=== PATIENT | male | born 1970 | race Two or more races ===

== ENCOUNTER 2018-07-22 09:34 | Emergency (ER) | payer SELFPAY ==
[~2018-07-22] VITALS: Ht 172.7 cm; Wt 95.3 kg
[2018-07-22 09:53] VITALS: BP 133/85
--- NOTE | 2018-07-22 10:59 | RAD ---
Chest, PA and Lateral: Technique: PA and lateral views of the chest were obtained. History: Chest pain. Comparison: None. Findings: The heart size grossly appears unremarkable. Patchy bibasilar lung airspace opacities likely atelectasis or infiltrates. Mild degenerative changes thoracic spine. IMPRESSION: Mild patchy bibasilar airspace opacities likely atelectasis or infiltrates. Electronically signed by: Austin Ashraf MD (07/22/2018 10:56 AM) [id number]
[2018-07-22] MEDS ORDERED: DOXY100C2 PO (11:04)
[2018-07-22] MEDS ORDERED: CYCL5TAB PO (11:04)
--- NOTE | 2018-07-22 11:15 | PHYS DOC ---
Past Medical History Past Medical History: Hypertension Past Surgical History: Other Additional Past Surgical Histo: hernia repair Alcohol Use: None Drug Use: None Adult General Chief Complaint Chief Complaint: BACK PAIN OR INJURY HPI HPI Patient is a 47 year old male who presents with right-sided mid back pain for the last 2 weeks he said it started after he lifted something heavy at work. It is worse with lifting or twisting in addition he has a cough dry cough mostly no fever he says also it hurts to take a deep breath. It is not coughing up any blood no prior history of blood clot really no shortness of breath. No medical history none Medications he has been using [id number] agents for minimal relief Review of Systems Review of Systems Constitutional: Denies fever or chills [] Eyes: Denies change in visual acuity, redness, or eye pain [] HENT: Denies nasal congestion or sore throat [] Respiratory Cardiovascular: No additional information not addressed in HPI [] GI: Denies abdominal pain, nausea, vomiting, bloody stools or diarrhea [] : Denies dysuria or hematuria [] Musculoskeletal: All other systems were reviewed and found to be within normal limits, except as documented in this note. Allergies Allergies Allergies Coded Allergies Type Severity Reaction Last Updated Verified No Known Drug Allergies 07/22/18 No Physical Exam Physical Exam Constitutional: Well developed, well nourished, no acute distress, non-toxic appearance. [] HENT: Normocephalic, atraumatic, bilateral external ears normal, oropharynx moist, no oral exudates, nose normal. [] Eyes: PERRLA, EOMI, conjunctiva normal, no discharge. [] Neck: Normal range of motion, no tenderness, supple, no stridor. [] Lungs & Thorax: Bilateral breath sounds clear to auscultation [] Abdomen: Bowel sounds normal, soft, no tenderness, no masses, no pulsatile masses. [] Skin: Warm, dry, no erythema, no rash. [] Back: There is reproducible chest wall tenderness posterior right upper back at the T6 area laterally no midline tenderness] Extremities: No tenderness, no cyanosis, no clubbing, ROM intact, no edema. [] Neurologic: Alert and oriented X 3, normal motor function, normal sensory function, no focal deficits noted. [] Psychologic: Affect normal, judgement normal, mood normal. [] Current Patient Data Vital Signs Vital Signs Date Time Temp Pulse Resp B/P (MAP) Pulse Ox O2 Delivery O2 Flow Rate FiO2 07/22/18 09:53 98.2 59 18 133/85 (101) 97 Room Air 98.2 EKG EKG [] Radiology/Procedures Radiology/Procedures [] Impressions: IMPRESSION: Mild patchy bibasilar airspace opacities likely atelectasis or infiltrates. Electronically signed by: Austin Ashraf MD (07/22/2018 10:56 AM) [id number] DICTATED and SIGNED BY: AUSTIN ASHRAF MD DATE: 07/22/18 1054 Course & Med Decision Making Course & Med Decision Making Pertinent Labs and Imaging studies reviewed. (See chart for details) []47-year-old male no past medical history presenting with upper back pain initially did some musculoskeletal but he endorsed a pleuritic component as well as having a cough so we did a chest x-ray which showed bibasilar possibly rolled subtle infiltrate. Patient is satting well not tachycardic nor hypoxic normal blood pressure he is definitely appropriate for outpatient management prescription for doxycycline was provided as well as a muscle relaxant for his neck pain. 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 Dragon Disclaimer Dragon Disclaimer This electronic medical record was generated, in whole or in part, using a voice recognition dictation system. Departure Departure Impression: Primary Impression: Pneumonia Disposition: 01 HOME, SELF-CARE Condition: STABLE Patient Instructions: Pneumonia, Adult, [id number] Scripts Cyclobenzaprine Hcl (CYCLOBENZAPRINE HCL) 5 Mg Tablet 5 MG PO PRN TID PRN for MUSCLE SPASMS, #15 TAB Prov: MARIJA BUSTILLOS MD 07/22/18 Doxycycline Hyclate (DOXYCYCLINE HYCLATE) 100 Mg Capsule 1 CAP PO BID, #20 CAP Prov: MARIJA BUSTILLOS MD 07/22/18 MARIJA BUSTILLOS MD Jul 22, 2018 11:15
== END 2018-07-22 11:09 | disposition home or self-care (01) ==
LOC: ER 09:34
DX: J18.9 Pneumonia, unspecified organism (principal); M54.6 Pain in thoracic spine; I10 Essential (primary) hypertension
CPT/HCPCS: 71046; 99284